=== PATIENT | female | born 1995 | race Caucasian/White ===

== ENCOUNTER 2016-11-02 13:00 | Emergency (ER) | payer BC ==
[~2016-11-02] VITALS: Ht 157.5 cm; Wt 45.5 kg
[~2016-11-02 13:00] MED LIST: IBUP400T22 PO
[2016-11-02 13:08] VITALS: Ht 157.5 cm; Wt 45.5 kg
[2016-11-02] MEDS ORDERED: PANT40TA3 PO (15:08)
--- NOTE | 2016-11-02 15:11 | ERD ---
ER Documentation Chief Complaint Date/Time DATE: 11/02/16 TIME: 15:10 Chief Complaint Complains of abdominl pain x 1 week HPI 21-year-old female presents with epigastric pain for last week. Patient has a history of gastritis. She has no endoscopy 2 years ago. She was negative for H. pylori. She took Prilosec for 6 months but does not want to take it due to possible long-term side effects. She has blood, vomiting, fevers, lower abdominal pain. Menstrual period was last week and she is regular. ROS All systems reviewed and are negative except as per history of present illness. Medications Home Meds Active Scripts Pantoprazole* (Protonix*) 40 Mg Tablet.dr, 40 MG PO DAILY, #20 TAB Prov:BRIDGET AVILEZ MD 11/02/16 Ibuprofen* (Motrin*) 400 Mg Tab, 400 MG PO Q6, #30 TAB Prov:VIVIAN JOHNSON DO 02/12/16 Reported Medications [None] No Conflict Check 04/27/10 Allergies Allergies: Coded Allergies: No Known Drug Allergies (Verified Allergy, Mild, 11/02/16) PMhx/Soc Medical and Surgical Hx: pt denies Surgical Hx History of Surgery: No Anesthesia Reaction: No Hx Neurological Disorder: No Hx Respiratory Disorders: No Hx Cardiac Disorders: Yes (LOW BP) Hx Psychiatric Problems: No Hx Miscellaneous Medical Probl: Yes (gastritis; SCOLIOSIS) Hx Alcohol Use: No Hx Substance Use: No Hx Tobacco Use: No Smoking Status: Never smoker Physical Exam Vitals Vital Signs Date Time Temp Pulse Resp B/P Pulse Ox O2 Delivery O2 Flow Rate FiO2 11/02/16 13:08 98.7 86 20 120/68 100 Physical Exam Const: [] Alert, [id number]-[id number] per Head: Atraumatic Eyes: Normal Conjunctiva ENT: Normal External Ears, Nose and Mouth. Neck: Full range of motion..~ No meningismus. Resp: Clear to auscultation bilaterally Cardio: Regular rate and rhythm, no murmurs Abd: Soft, mild epigastric tenderness. No Lanza sign and no tenderness at McBurney's point no lower abdominal tenderness no rebound. non distended. Normal bowel sounds Skin: No petechiae or rashes Back: No midline or flank tenderness Ext: No cyanosis, or edema Neur: Awake and alert Psych: Normal Mood and Affect Procedures/MDM Patient presents with a history, signs and symptoms of likely gastritis. Current signs and symptoms do not suggest acute abdomen, obstruction, hepatobiliary disease, appendicitis, there is no signs or symptoms to suggest UTI, related complications. She will be treated with Protonix and primary doctor and GI follow-up. She should return for fevers, vomiting, blood , lower abdominal pain, new worsening symptoms with primary doctor this week. She is given GI cocktail and Pepcid here in the ED. The patient was stable with no new complaints during the ER course. Clinically, there is no current evidence to suggest meningitis, sepsis, acute abdomen, pneumonia, acute coronary syndrome, pulmonary embolism, or any other emergent condition appearing to require further evaluation or hospitalization. The patient should certainly return for any new or worsening symptoms per the aftercare instructions. They should otherwise follow-up with her primary care doctor for reevaluation this week. Departure Diagnosis: Primary Impression: Abdominal pain Abdominal location: epigastric Qualified Code: R10.13 - Epigastric pain Condition: Stable Patient Instructions: Gastritis (Adult) Referrals: DARLYN BARNEY (PCP) Additional Instructions: The gastritis made. May try Pepcid after completion of Protonix. Continue trying to see specialist and recheck for fevers, vomiting, blood, lower abdominal pain, new or worsening symptoms. BRIDGET AVILEZ MD Nov 02, 2016 15:11
[2016-11-02] MEDS ORDERED: LIDOCAINE/MYLANTA 40 ML BTL PO ONE (15:30)
[2016-11-02] MEDS ORDERED: FAMOTIDINE 20 MG TAB PO ONE (15:30)
[2016-11-02 16:29] VITALS: BP 148/94; PULSE 78; RESP 20; TEMP 98.1
== END 2016-11-02 16:31 | disposition home or self-care (01) ==
LOC: FTE 13:00
DX: R10.13 Epigastric pain (principal)
CPT/HCPCS: 99283; Z7610